=== PATIENT | male | born 1940 | race Asian ===

== ENCOUNTER 2017-10-10 15:14 | Emergency (ER) | payer OTHER ==
[~2017-10-10] VITALS: Ht 172.7 cm; Wt 54.4 kg
[~2017-10-10 15:14] MED LIST: ALDACTONE25 MG PO; ASPI-COR81 M3 PO; ATORVASTATIN CA40 M1 PO; CARVEDILOL12.5 M1 PO; COZAAR100 MG PO; DIGOXIN0.125 M1 PO; FENOFIBRATE160 M1 PO; FLO4 PO; FLUOXETINE20 M2 PO; FUROSEMIDE40 MG PO; GLIMEPIRIDE2 M1 PO; METFORMIN HCL750 MG PO; NATURAL IRON65 MG PO; VITAMIN D32000 I2 PO
[2017-10-10 15:30] VITALS: BP 130/75; Ht 172.7 cm; Wt 54.4 kg
== END 2017-10-10 17:39 | disposition home or self-care (01) ==
LOC: ED 15:14
DX: T83.031A Leakage of indwelling urethral catheter, initial encounter (principal); I11.0 Hypertensive heart disease with heart failure; I50.9 Heart failure, unspecified; E11.9 Type 2 diabetes mellitus without complications; E78.00 Pure hypercholesterolemia, unspecified

== ENCOUNTER 2017-11-29 16:59 | Inpatient (IN) | payer OTHER ==
[~2017-11-29] VITALS: Ht 172.7 cm; Wt 59.0 kg
[2017-11-29 17:05] VITALS: Ht 172.7 cm; Wt 59.0 kg
[2017-11-29 18:44] LABS: BASOPHIL % 0.3 % (0-2)
[2017-11-29 18:45] LABS: PLATELET COUNT 108 x10^3mcL (130-400); RED CELL DISTRIBUTION WIDTH 15.1 % (11.5-14.5)
[2017-11-29 18:59] LABS: CALCIUM 8.3 mg/dL (8.5-10.1); CARBON DIOXIDE 25.5 mmol/L (21-32); CHLORIDE SERUM 103 mmol/L (98-107); CREATININE SERUM 1.7 mg/dL (0.7-1.3); GLUCOSE SERUM 123 mg/dL (74-106); POTASSIUM SERUM 3.9 mmol/L (3.5-5.1); SODIUM SERUM 140 mmol/L (136-145)
[2017-11-29 19:04] LABS: ALKALINE PHOSPHATASE 95 U/L (46-116); ALT/SGPT 58 U/L (16-63); AST/SGOT 51 U/L (15-37); BILIRUBIN TOTAL 0.7 mg/dL (0.20-1.00); HDL CHOLESTEROL 45 mg/dL (40-60); TOTAL PROTEIN, SERUM 6.4 g/dL (6.4-8.2)
[2017-11-29 19:05] LABS: ALBUMIN 2.8 g/dL (3.4-5.0); CHOLESTEROL 90 mg/dL (<200)
[2017-11-29 19:24] LABS: UA SPECIFIC GRAVITY 1.025 (1.005-1.035); microscopic required? YES; urine erythrocyte 2+ (NEGATIVE)
[2017-11-29 21:36] VITALS: BP 131/72
[2017-11-30 05:30] VITALS: BP 115/64
[2017-11-30 06:17] LABS: BASOPHIL % 0.2 % (0-2)
[2017-11-30 06:19] LABS: CALCIUM 7.9 mg/dL (8.5-10.1); CARBON DIOXIDE 26.9 mmol/L (21-32); CHLORIDE SERUM 103 mmol/L (98-107); GLUCOSE SERUM 154 mg/dL (74-106); POTASSIUM SERUM 4.1 mmol/L (3.5-5.1); SODIUM SERUM 137 mmol/L (136-145)
[2017-11-30 07:19] LABS: PLATELET COUNT 95 x10^3mcL (130-400); RED CELL DISTRIBUTION WIDTH 14.6 % (11.5-14.5)
[2017-11-30 09:08] VITALS: BP 117/60
[2017-11-30 12:15] VITALS: BP 109/59
[2017-11-30 16:21] VITALS: BP 96/46
[2017-11-30] MEDS ORDERED: KEPPRA500 MG PO (18:31)
[2017-11-30 21:14] VITALS: BP 115/57
[2017-12-01 05:03] VITALS: BP 109/52
[2017-12-01 06:43] LABS: BASOPHIL % 0.3 % (0-2)
[2017-12-01 06:44] LABS: PLATELET COUNT 90 x10^3mcL (130-400); RED CELL DISTRIBUTION WIDTH 15.2 % (11.5-14.5)
[2017-12-01 06:56] LABS: CALCIUM 7.8 mg/dL (8.5-10.1); CARBON DIOXIDE 24.3 mmol/L (21-32); CHLORIDE SERUM 105 mmol/L (98-107); CREATININE SERUM 2.4 mg/dL (0.7-1.3); GLUCOSE SERUM 79 mg/dL (74-106); SODIUM SERUM 139 mmol/L (136-145)
[2017-12-01 09:35] VITALS: BP 108/58; BP 119/58
[2017-12-01 13:16] VITALS: BP 107/52
[2017-12-01 17:35] VITALS: BP 110/57
[2017-12-01 21:29] VITALS: BP 108/42
[2017-12-02 05:25] VITALS: BP 130/59
[2017-12-02 05:47] LABS: BASOPHIL % 0.3 % (0-2)
[2017-12-02 06:05] LABS: CALCIUM 7.7 mg/dL (8.5-10.1); CARBON DIOXIDE 26.7 mmol/L (21-32); CHLORIDE SERUM 106 mmol/L (98-107); CREATININE SERUM 2.4 mg/dL (0.7-1.3); POTASSIUM SERUM 3.8 mmol/L (3.5-5.1); SODIUM SERUM 142 mmol/L (136-145)
[2017-12-02 06:10] LABS: GLUCOSE SERUM 51 mg/dL (74-106)
[2017-12-02 06:47] LABS: PLATELET COUNT 96 x10^3mcL (130-400); RED CELL DISTRIBUTION WIDTH 15.3 % (11.5-14.5)
[2017-12-02 09:07] VITALS: BP 122/51
[2017-12-02 10:51] VITALS: BP 122/51
== END 2017-12-02 12:05 | disposition home or self-care (01) | DRG 871 ==
LOC: ED 16:59 → DU 19:28
PROVIDERS: Emergency Medicine; Internal Medicine
DX: A41.9 Sepsis, unspecified organism (principal); J69.0 Pneumonitis due to inhalation of food and vomit; J96.20 Acute and chronic respiratory failure, unspecified whether with hypoxia or hypercapnia; Z68.1 Body mass index [BMI] 19.9 or less, adult; N39.0 Urinary tract infection, site not specified; N17.9 Acute kidney failure, unspecified; E44.0 Moderate protein-calorie malnutrition; I13.0 Hypertensive heart and chronic kidney disease with heart failure and stage 1 through stage 4 chronic kidney disease, or unspecified chronic kidney disease; I50.42 Chronic combined systolic (congestive) and diastolic (congestive) heart failure; E11.22 Type 2 diabetes mellitus with diabetic chronic kidney disease; N18.9 Chronic kidney disease, unspecified; I25.10 Atherosclerotic heart disease of native coronary artery without angina pectoris; D64.9 Anemia, unspecified; G40.909 Epilepsy, unspecified, not intractable, without status epilepticus; I25.2 Old myocardial infarction; Z95.810 Presence of automatic (implantable) cardiac defibrillator; Z95.1 Presence of aortocoronary bypass graft; Z79.84 Long term (current) use of oral hypoglycemic drugs; Z79.82 Long term (current) use of aspirin
CPT/HCPCS: 97110-GP; 97530-GP; J0456; J0696; J1956; J2543; J3490; J7030; Q0092

== ENCOUNTER 2017-12-14 16:36 | Inpatient (IN) | payer OTHER ==
[~2017-12-14] VITALS: Ht 172.7 cm; Wt 61.0 kg
[~2017-12-14 16:36] MED LIST changes: -ASPI-COR81 M3 PO; +ASPIR 8181 MG PO; +FLUOXETINE HYDR20 M2 PO; -FLUOXETINE20 M2 PO; +KEPPRA500 MG PO
[2017-12-14 16:45] VITALS: Ht 172.7 cm; Wt 61.0 kg
[2017-12-14 19:34] LABS: BASOPHIL % 0.5 % (0-2)
[2017-12-14 19:35] LABS: PLATELET COUNT 124 x10^3mcL (130-400); RED CELL DISTRIBUTION WIDTH 14.9 % (11.5-14.5)
[2017-12-14 20:22] LABS: CALCIUM 7.8 mg/dL (8.5-10.1); CHLORIDE SERUM 106 mmol/L (98-107); CREATININE SERUM 2.1 mg/dL (0.7-1.3); GLUCOSE SERUM 131 mg/dL (74-106); POTASSIUM SERUM 3.5 mmol/L (3.5-5.1); SODIUM SERUM 141 mmol/L (136-145)
[2017-12-14 20:35] LABS: ALKALINE PHOSPHATASE 68 U/L (46-116); ALT/SGPT 18 U/L (16-63); AST/SGOT 18 U/L (15-37); BILIRUBIN TOTAL 0.58 mg/dL (0.20-1.00); FREE T4 1.47 ng/dL (0.76-1.46)
[2017-12-14 20:36] LABS: ALBUMIN 2.4 g/dL (3.4-5.0); TOTAL PROTEIN, SERUM 5.8 g/dL (6.4-8.2)
[2017-12-14] MEDS ORDERED: NATURAL IRON65 MG PO (20:46)
[2017-12-14] MEDS ORDERED: GLIPIZIDE2.5 M1 PO (20:48)
[2017-12-14] MEDS ORDERED: LORAZEPAM0.5 MG PO (20:49)
[2017-12-14 20:53] LABS: UA SPECIFIC GRAVITY >=1.030 (1.005-1.035); microscopic required? YES; urine erythrocyte 3+ (NEGATIVE)
[2017-12-14 23:00] VITALS: BP 120/69
[2017-12-14 23:55] VITALS: BP 120/69
[2017-12-15 05:35] VITALS: BP 119/64
[2017-12-15 06:48] LABS: CALCIUM 7.9 mg/dL (8.5-10.1); CARBON DIOXIDE 28.6 mmol/L (21-32); CHLORIDE SERUM 107 mmol/L (98-107); CREATININE SERUM 1.9 mg/dL (0.7-1.3); GLUCOSE SERUM 95 mg/dL (74-106); POTASSIUM SERUM 3.5 mmol/L (3.5-5.1); SODIUM SERUM 141 mmol/L (136-145)
[2017-12-15 06:50] LABS: BASOPHIL % 0.5 % (0-2); PLATELET COUNT 105 x10^3mcL (130-400)
[2017-12-15 09:44] VITALS: BP 131/75
[2017-12-15 12:58] VITALS: BP 123/69
[2017-12-15 16:56] VITALS: BP 120/68
[2017-12-15 21:14] VITALS: BP 112/50
[2017-12-16] VITALS (9 sets, daily range): BP systolic 100–131; BP diastolic 53–77
[2017-12-16 19:25] LABS: APPEARANCE FLUID CLEAR; COLOR FLUID PALE YELLOW; RBC FLUID 8 /cumm; SOURCE FLUID THORACENTESIS; WBC FLUID 9 /cumm
[2017-12-17 05:13] VITALS: BP 117/71
[2017-12-17 09:11] VITALS: BP 125/71
[2017-12-17 09:21] VITALS: BP 117/71
[2017-12-17 13:34] VITALS: BP 104/65
[2017-12-17 17:19] VITALS: BP 126/60
[2017-12-17 20:01] VITALS: BP 97/62
[2017-12-18 05:54] LABS: CALCIUM 7.9 mg/dL (8.5-10.1); CARBON DIOXIDE 25.5 mmol/L (21-32); CHLORIDE SERUM 107 mmol/L (98-107); POTASSIUM SERUM 3.9 mmol/L (3.5-5.1); SODIUM SERUM 144 mmol/L (136-145)
[2017-12-18 05:55] VITALS: BP 122/72
[2017-12-18 05:56] LABS: GLUCOSE SERUM 59 mg/dL (74-106)
[2017-12-18 07:28] LABS: BASOPHIL % 0.1 % (0-2)
[2017-12-18 07:31] LABS: PLATELET COUNT 97 x10^3mcL (130-400)
[2017-12-18 09:30] VITALS: BP 110/69
[2017-12-18 13:30] VITALS: BP 115/64
[2017-12-18 16:48] VITALS: BP 100/54
[2017-12-18 20:16] VITALS: BP 96/50
[2017-12-19 05:24] VITALS: BP 109/64
[2017-12-19 06:33] LABS: BASOPHIL % 0.2 % (0-2); PLATELET COUNT 133 x10^3mcL (130-400); RED CELL DISTRIBUTION WIDTH 14.5 % (11.5-14.5)
[2017-12-19 06:34] LABS: CALCIUM 7.8 mg/dL (8.5-10.1); CARBON DIOXIDE 26.8 mmol/L (21-32); CHLORIDE SERUM 105 mmol/L (98-107); CREATININE SERUM 2.1 mg/dL (0.7-1.3); POTASSIUM SERUM 4.1 mmol/L (3.5-5.1); SODIUM SERUM 140 mmol/L (136-145)
[2017-12-19 06:55] LABS: GLUCOSE SERUM 48 mg/dL (74-106)
[2017-12-19 09:08] VITALS: BP 117/60
[2017-12-19 13:24] VITALS: BP 120/60
[2017-12-19 14:08] VITALS: BP 120/60
[2017-12-19 16:51] VITALS: BP 116/68
== END 2017-12-19 18:15 | DRG 177 ==
LOC: ED 16:36 → DU 21:39
PROVIDERS: Emergency Medicine; Internal Medicine
PROC: 0W9930Z Drainage of Right Pleural Cavity with Drainage Device, Percutaneous Approach (ICD-10-PCS; principal; 2017-12-16)
DX: J69.0 Pneumonitis due to inhalation of food and vomit (principal); J96.00 Acute respiratory failure, unspecified whether with hypoxia or hypercapnia; N39.0 Urinary tract infection, site not specified; N17.9 Acute kidney failure, unspecified; Z68.1 Body mass index [BMI] 19.9 or less, adult; E44.0 Moderate protein-calorie malnutrition; I13.0 Hypertensive heart and chronic kidney disease with heart failure and stage 1 through stage 4 chronic kidney disease, or unspecified chronic kidney disease; J90 Pleural effusion, not elsewhere classified; J44.1 Chronic obstructive pulmonary disease with (acute) exacerbation; N18.9 Chronic kidney disease, unspecified; D64.9 Anemia, unspecified; G40.909 Epilepsy, unspecified, not intractable, without status epilepticus; N40.0 Benign prostatic hyperplasia without lower urinary tract symptoms; I25.10 Atherosclerotic heart disease of native coronary artery without angina pectoris; F03.90 Unspecified dementia, unspecified severity, without behavioral disturbance, psychotic disturbance, mood disturbance, and anxiety
CPT/HCPCS: 32555; 83880; 84439; 97110-GP; 97116-GP; 97530-GP; C1729; J0696; J1644; J1956; J2001; J2060; J3490; J7040; J7050; J7620; Q0092